=== PATIENT | female | born 1995 | race Caucasian/White ===

== ENCOUNTER 2023-12-27 16:15 | Emergency (ER) | payer OTHER, SELFPAY ==
[2023-12-27 16:26] VITALS: BP 109/75; PULSE 112; RESP 16; TEMP 38.7; O2SAT 95; BMI 68.5
[2023-12-27] MEDS: METOCLOPRAMIDE HCL 5 MG/ML INJ 10 MG IVP (19:34)
[2023-12-27] MEDS: LACTATED RINGERS 1000 ML 1,000 ML IV (19:34)
[2023-12-27] MEDS: diphenhydrAMINE 50 MG/ML inj 25 MG IVP (19:34)
--- NOTE | 2023-12-27 19:46 | ED_ITS ---
HPI - General Adult General Date Seen: 12/27/23 Chief complaint: Headache/Migraine Stated complaint: fever, body aches Time Seen by Provider: 12/27/23 19:13 Source: patient Mode of arrival: ambulatory Limitations: no limitations History of Present Illness HPI narrative: Patient is a 27-year-old female presenting to emergency department for a headache and flu-like symptoms. She starts for the past 2 days she has been having a headache that she describes as during her forehead and going around her head like a band. She has had associated nausea is currently nauseated. Had 2 episodes of vomiting this morning. Also had some diarrhea this morning. Has had a fever at home also. States symptoms got worse last night. Has had headaches before but they were when she was in high school and none within the past 10 years. Is not aware of any other sick contacts. Has had a runny nose. Denies chest pain, shortness of breath, lightheadedness, dizziness, weakness, numbness. Is feeling fatigued and having muscle aches. No other concerns noted at this time Related Data Home Medications ?Medication ?Instructions ?Recorded ?Confirmed No Known Home Medications 12/27/23 12/27/23 Allergies Allergy/AdvReac Type Severity Reaction Status Date / Time amoxicillin Allergy Mild Verified 12/27/23 16:34 codeine Allergy Mild Verified 12/27/23 16:34 hydrocodone [From Vicodin] Allergy Mild Verified 12/27/23 16:34 iodine Allergy Mild Verified 12/27/23 16:34 Penicillins Allergy Mild Verified 12/27/23 16:34 shellfish derived Allergy Mild Verified 12/27/23 16:34 Review of Systems Status of ROS: Reports: 10 or more systems reviewed and unremarkable except as noted in History and below Exam Narrative: Exam Narrative: Const: Well-nourished, Well-developed, in moderate distress Eyes: PERRL, no conjunctival injection, and symmetrical lids HENT: Atraumatic external nose and ears. Moist mucous membranes. Neck: Symmetric, trachea midline, No thyromegaly. CVS: RRR, No murmurs or gallops. Peripheral pulses 2+ and equal in all extremities RESP: Unlabored respiratory effort. Clear to auscultation bilaterally. GI: Nontender/Nondistended, No rebound or guarding. MSK:Extremities w/o deformity, Normal Active ROM Skin: Warm, Dry. No rashes or lesions. Neuro: Normal Muscle tone, No focal neurological deficits. Psych: Awake, Alert, & Oriented x3. Appropriate mood and affect. Const: Vital Signs, click to edit/add: Vital Signs - 24 hr 12/27/23 16:26 Temperature 101.7 F H Pulse Rate [Pulse Oximeter] 112 H Respiratory Rate 16 Blood Pressure [Ri ght Upper Arm] 109/75 Pulse Oximetry 95 Oxygen Delivery Me thod Room Air Course Vital Signs Vital signs: Initial Vital Signs Temperature 101.7 F H 12/27/23 16:26 Temperature Source Temporal Artery Scan 12/27/23 16:26 Pulse Rate 112 H 12/27/23 16:26 Respiratory Rate 16 12/27/23 16:26 Blood Pressure 109/75 12/27/23 16:26 Blood Pressure Mean 86 12/27/23 16:26 Blood Pressure Position Sitting 12/27/23 16:26 Pulse Oximetry 95 12/27/23 16:26 Oxygen Delivery Method Room Air 12/27/23 16:26 Vital Signs Temperature 101.7 F H 12/27/23 16:26 Pulse Rate 112 H 12/27/23 16:26 Respiratory Rate 16 12/27/23 16:26 Blood Pressure 109/75 12/27/23 16:26 Pulse Oximetry 95 12/27/23 16:26 Oxygen Delivery Method Room Air 12/27/23 16:26 Temperature 101.7 F H 12/27/23 16:26 Pulse Rate 112 H 12/27/23 16:26 Respiratory Rate 16 12/27/23 16:26 Blood Pressure 109/75 12/27/23 16:26 Pulse Oximetry 95 12/27/23 16:26 Oxygen Delivery Method Room Air 12/27/23 16:26 Medications Administered Medications: Discontinued Medications Generic Name Dose Route Start Last Admin Trade Name Freq PRN Reason Stop Dose Admin Acetaminophen 650 mg 12/27/23 20:52 12/27/23 21:19 Acetaminophen 325 Mg Tablet PO 12/27/23 20:53 650 mg ONCE ONE Administration Diphenhydramine HCl 25 mg 12/27/23 19:24 12/27/23 19:34 Diphenhydramine 50 Mg/Ml Inj IVP 12/27/23 19:25 25 mg ONCE ONE Administration Lactated Ringer's 1,000 mls @ 1,000 mls/hr 12/27/23 19:24 12/27/23 20:25 Lactated Ringers 1000 Ml IV 12/27/23 20:23 Infused .Q1H ONE Infusion Ibuprofen 600 mg 12/27/23 19:47 12/27/23 20:24 Ibuprofen 200 Mg Tablet PO 12/27/23 19:48 Not Given ONCE ONE Metoclopramide HCl 10 mg 12/27/23 19:24 12/27/23 19:34 Metoclopramide Hcl 5 Mg/Ml Inj IVP 12/27/23 19:25 10 mg ONCE ONE Administration Medical Decision Making MDM Narrative Medical decision making narrative: Patient is a 27-year-old female presenting for headache and flu-like symptoms. Will test her for flu, COVID, RSV. Tylenol given for her fever. Will treat her with a migraine cocktail including Benadryl, Reglan, 1 L of fluids. Considering she seems else of viral symptoms and is likely dehydrated along with her headache sounds more like a tension type headache I do not believe head imaging is necessary. COVID/flu/RSV is negative. After the migraine cocktail she is feeling much better and feels safe to go. Will discharge her with Zofran via [facility]. Informed to stay well hydrated. She is agreeable to this plan. Lab Data Labs: Lab Results 12/27/23 Range/Units 19:28 SARS-CoV-2 (PCR) Negative SARS-CoV-2 (Negative) Influenza Type A (PCR) Negative PCR FLU A (Negative) Influenza Type B (PCR) Negative PCR FLU B (Negative) RSV (PCR) Negative PCR RSV (Negative) Discharge Plan Discharge Clinical Impression: Headache Qualifiers: Headache type: tension-type Patient Disposition: Home, Self-Care Condition: Improved Instructions: Acute Headache (DC) Additional Instructions: Symptoms are likely caused by a viral syndrome and dehydration. Use Zofran prescribed to instym[facility] as needed for nausea. Make sure stay well hydrated. Take Tylenol for fevers. Prescriptions: No Action No Known Home Medications Follow Up/Referrals: Provider,Not a Local [Primary Care Provider] - Stand Alone Forms: Smartsheet Info Instructions
[2023-12-27 20:14] LABS: PCR FLU A Negative PCR FLU A (Negative); PCR FLU B Negative PCR FLU B (Negative); PCR RSV Negative PCR RSV (Negative); SARS PCR* Negative SARS-CoV-2 (Negative)
[2023-12-27] MEDS: ACETAMINOPHEN 325 MG TABLET 650 MG PO (21:19)
== END 2023-12-27 21:30 | disposition home or self-care (01) ==
PROVIDERS: Emergency Provider Student in an Organized Health Care Education/Training Program
DX: R51.9 Headache, unspecified (principal)
CPT/HCPCS: 87631; 96374; 96375; 99282; 99283; A9270; J1200; J2765; J7120

== ENCOUNTER 2025-02-27 12:14 | Outpatient (CLI) | payer BC, SELFPAY ==
--- NOTE | 2025-02-27 12:15 | CRLHL7_ITS ---
For Patients: As a result of the Century Cures Act, medical imaging exams and procedure reports are released immediately into your electronic medical record. You may view this report before your referring provider. If you have questions, please contact your health care provider. OB ULTRASOUND LESS THAN 14 WEEKS CLINICAL HISTORY: Dating and viability. COMPARISON: None. TECHNIQUE: Real-time ultrasound imaging of the pelvis performed, transvaginal. FINDINGS: Imaging: TV. LMP: 12/30/2024. KARMEN by LMP: 10/06/2025. GA: 8 weeks 3 days. CRL: 1.7 cm, 8 weeks 0 days. KARMEN 10/09/2025. FHR: 167 bpm. GEST SAC: 2.8 cm, appears WNL. YOLK SAC: 3.6 mm, appears WNL. RIGHT OV: 2.8 x 2.0 x 1.8 cm. WNL. CL. LEFT OV: 2.6 x 1.4 x 2.0 cm. IMPRESSION: 1. Single living intrauterine measures 8 weeks 0 days with sonographic due date 10/09/2025. 2. Subchorionic hemorrhage measures 1.6 x 0.8 x 1.6 cm. 3. Corpus luteal cyst right ovary. Brandon Garcia M.D. Diagnostic Radiologist [email or web address] Transcribed: 3:23 pm DW/Dictated by: Brandon Garcia MD @ 02/27/2025 2:43:00 PM (Electronically Signed)
== END 2025-02-27 12:15 | disposition home or self-care (01) ==
LOC: US 12:14
PROVIDERS: Visit Provider Advanced Practice Midwife
DX: O20.9 Hemorrhage in early pregnancy, unspecified (principal); O34.81 Maternal care for other abnormalities of pelvic organs, first trimester; N83.11 Corpus luteum cyst of right ovary; Z3A.08 8 weeks gestation of pregnancy
CPT/HCPCS: 76817

== ENCOUNTER 2025-02-27 13:24 | Outpatient (CLI) | payer BC, SELFPAY ==
[2025-02-27 18:07] LABS: Chlamydia DNA Amplified* NOT DETECTED (No Detected); GC DNA Amplified* NOT DETECTED (No Detected)
== END 2025-02-27 13:25 | disposition home or self-care (01) ==
PROVIDERS: Visit Provider Advanced Practice Midwife
DX: Z34.91 Encounter for supervision of normal pregnancy, unspecified, first trimester (principal); Z3A.08 8 weeks gestation of pregnancy
CPT/HCPCS: 83020; 83021; 84443; 85660; 86703; 86704; 86706; 86762; 86780; 86787; 86803; 86850; 86900; 86901; 87086; 87340; 87491; 87591